=== PATIENT | female | born 1985 | race Caucasian/White ===

== ENCOUNTER 2017-09-09 23:27 | Emergency (ER) | payer OTHER ==
[2017-09-10] MEDS ORDERED: IBUPROFEN 600 MG TAB PO ONE (01:02)
[2017-09-10] MEDS ORDERED: LORazepam 1 MG TAB PO ONE (01:32)
[2017-09-10] MEDS ORDERED: TDAP ADULT 0.5 ML INJ (BOOSTRIX) IM ONE (01:47)
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
[2017-09-10 02:14] VITALS: BP 108/68
[2017-09-10] MEDS ORDERED: NICOTINE 7 MG/24 HR PATCH TD SCH (09:00)
[2017-09-15] MEDS ORDERED: TDAP ADULT 0.5 ML INJ (BOOSTRIX) IM ONE (16:30)
== END 2017-09-10 02:14 | disposition home or self-care (01) ==
LOC: EEVIPCON 23:27
PROC: 0HQ1XZZ Repair Face Skin, External Approach (ICD-10-PCS; principal; 2017-09-09)
DX: S01.81XA Laceration without foreign body of other part of head, initial encounter (principal); T74.91XA Unspecified adult maltreatment, confirmed, initial encounter; S40.211A Abrasion of right shoulder, initial encounter; S40.812A Abrasion of left upper arm, initial encounter; J45.909 Unspecified asthma, uncomplicated; F17.200 Nicotine dependence, unspecified, uncomplicated; Y09 Assault by unspecified means